=== PATIENT | male | born 1935 | race Caucasian/White ===

== ENCOUNTER 2017-06-15 14:01 | Inpatient (IN) | payer MEDICARE ==
--- NOTE | 2017-06-15 14:32 | ED Physician Chart ---
ED Chief Complaint/HPI - Patient Information Date Seen:: 06/15/17 Time Seen:: 14:20 Chief Complaint:: chest pain History of Present Illness:: Patient states he had a few seconds of anterior chest pain this morning which caused him to yell. The nurse administrator of the facility where he resides accompanied the patient and stated he sometimes has temper tantrums. Patient insists that his behavior this morning was secondary to his chest pain. Historian:: Patient, Other (nurse administrator of the facility at which he resides.) Review:: Nurse's Note Reviewed, Transfer documents Reviewed ED Review of Systems - Review of Systems General/Constitutional: No fever, No chills Skin: No skin lesions Head: No headache Eyes: No loss of vision ENT: No earache Neck: No neck pain, No swelling Cardio Vascular: Chest pain Pulmonary: No SOB GI: No nausea, No vomiting, No diarrhea G/U: No dysuria, No hematuria Musculoskeletal: No bone or joint pain Endocrine: No polyuria, No polydipsia Psychiatric: Prior psych history Hematopoietic: No bruising Allergic/Immuno: No urticaria Neurological: No syncope ED Past Medical History - Past Medical History Past Medical History: DM, CVA/TIA, Other (benign prostatic hypertrophy; neurogenic bladder; hydronephrosis; deep vein thrombosis left leg) Family History: None Social History: Non Smoker, No Alcohol, Care Facility Surgical History: Hernia Psychiatricy History: None Medication: Reviewed Family Medical History - Family Member Mother Ethnicity: Non- Living Status: ED Physical Exam - Physical Examination General/Constitutional: Well-developed, well-nourished, Alert, No distress Other Gen/Cons comments:: Alert and oriented to the exact date Head: Atraumatic Eyes: Lids, conjuctiva normal, PERRL Skin: Nl inspection, No rash ENMT: External ears, nose nl Other ENMT comments:: Complete dentures Neck: No nuchal rigidity Respiratory: Nl effort/Exclusion, Clear to Auscultation, No Wheeze/Rhonchi/Rales Cardio Vascular: RRR, No murmur, gallop, rubs, NL S1 S2 GI: No tenderness/rebounding/guarding, No organomegaly, No hernia, Normal BS's Extremities: Normal digits & nails Neuro/Psych: No focal deficits ED Labs/Radiology/EKG Results - Lab Results Results: Laboratory Results - last 24 hr 06/15/17 06/15/17 14:35 14:35 WBC 7.4 RBC 3.53 L Hgb 10.6 L Hct 31.4 L MCV 89.1 MCH 30.0 MCHC Differential 33.7 RDW 14.0 Plt Count 432 H MPV 6.7 Neutrophils % 40.5 Lymphocytes % 37.7 Monocytes % 13.9 H Eosinophils % 7.5 H Basophils % 0.4 Urine Source CLEAN C Urine Color YELLOW Urine Clarity CLOUDY Urine pH 6.5 Ur Specific [place] 1.020 Urine Protein 100 H Urine Glucose (UA) NEGATIVE Urine Ketones NEGATIVE Urine Blood LARGE H Urine Nitrate POSITIVE H Urine Bilirubin NEGATIVE Urine Urobilinogen 0.2 Ur Leukocyte Esterase LARGE H Urine RBC 25-50 H Urine WBC >100 H Ur Epithelial Cells NONE SEEN Urine Bacteria FEW Laboratory Results - last 24 hr 06/15/17 06/15/17 06/15/17 14:35 14:35 14:35 WBC 7.4 RBC 3.53 L Hgb 10.6 L Hct 31.4 L MCV 89.1 MCH 30.0 MCHC Differential 33.7 RDW 14.0 Plt Count 432 H MPV 6.7 Neutrophils % 40.5 Lymphocytes % 37.7 Monocytes % 13.9 H Eosinophils % 7.5 H Basophils % 0.4 Sodium 138 Potassium 3.8 Chloride 108 H Carbon Dioxide 21.1 Anion Gap 12.7 BUN 52 H Creatinine 3.2 H Est GFR ( Amer) TNP Est GFR (Non-Af Amer) TNP BUN/Creatinine Ratio 16.3 Glucose 96 Calcium 9.2 Total Bilirubin 0.2 L AST 10 L ALT 6 L Alkaline Phosphatase 64 Creatine Kinase Troponin I Total Protein 7.2 Albumin 3.6 L Globulin 3.6 Albumin/Globulin Ratio 1.0 Triglycerides 225 H Cholesterol 191 LDL Cholesterol Direct 117 HDL Cholesterol 44 TSH Urine Source CLEAN C Urine Color YELLOW Urine Clarity CLOUDY Urine pH 6.5 Ur Specific [place] 1.020 Urine Protein 100 H Urine Glucose (UA) NEGATIVE Urine Ketones NEGATIVE Urine Blood LARGE H Urine Nitrate POSITIVE H Urine Bilirubin NEGATIVE Urine Urobilinogen 0.2 Ur Leukocyte Esterase LARGE H Urine RBC 25-50 H Urine WBC >100 H Ur Epithelial Cells NONE SEEN Urine Bacteria FEW 06/15/17 06/15/17 06/15/17 14:35 14:35 14:35 WBC RBC Hgb Hct MCV MCH MCHC Differential RDW Plt Count MPV Neutrophils % Lymphocytes % Monocytes % Eosinophils % Basophils % Sodium Potassium Chloride Carbon Dioxide Anion Gap BUN Creatinine Est GFR ( Amer) Est GFR (Non-Af Amer) BUN/Creatinine Ratio Glucose Calcium Total Bilirubin AST ALT Alkaline Phosphatase Creatine Kinase 64 Troponin I 0.02 Total Protein Albumin Globulin Albumin/Globulin Ratio Triglycerides Cholesterol LDL Cholesterol Direct HDL Cholesterol TSH 1.50 Urine Source Urine Color Urine Clarity Urine pH Ur Specific [place] Urine Protein Urine Glucose (UA) Urine Ketones Urine Blood Urine Nitrate Urine Bilirubin Urine Urobilinogen Ur Leukocyte Esterase Urine RBC Urine WBC Ur Epithelial Cells Urine Bacteria - EKG Interpretations Rate & Rhythm: normal sinus rhythm with a rate of 76 [place]: normal Comments:: Unifocal PVCs ED Septic Shock - . Is Septic Shock (SBP<90, OR Lactate>4 mmol\L) present?: No ED Reassessment (Disposition) - Reassessment Reassessment Condition:: Unchanged - Diagnosis Diagnosis:: Combative behavior; typical chest pain renal insufficiency; data behavior; anemia - Patient Disposition Admitted to:: [facility] Admitting Medical Physician:: Leroy Paz Admitting Psych Physician:: Santiago Mota Condition at Disposition:: Stable, Unchanged
[2017-06-15 14:44] LABS: % BASOPHILS 0.4 % (0.0-2.0); % EOSINOPHILS 7.5 % (0.0-5.0); % LYMPHOCYTES 37.7 % (20.0-50.0); % MONOCYTES 13.9 % (2.0-10.0); % NEUTROPHILS 40.5 % (40.0-80.0); EOSINOPHILE ABSOLUTE 0.6 Th/cmm (0.1-0.4); HEMATOCRIT 31.4 % (41.0-60); HEMOGLOBIN 10.6 gm/dL (12-16); LYMPHOCYTE ABSOLUTE 2.8 Th/cmm (1.5-3.0); MEAN CELL VOLUME 89.1 fl (80-99); MEAN CORPUSCULAR HGB CONC 33.7 pg (28.0-36.0); MEAN PLATELET VOLUME 6.7 fl; PLATELET COUNT 432 Th/cmm (150-400); RED BLOOD COUNT 3.53 Mil/cmm (3.80-5.80); URINE MICROSCOPIC INDICATED? YES; URINE SOURCE CLEAN C; WHITE BLOOD COUNT 7.4 Th/cmm (4.8-10.8)
[2017-06-15 14:49] LABS: URINE BILIRUBIN NEGATIVE (NEGATIVE); URINE BLOOD LARGE (NEGATIVE); URINE GLUCOSE (UA) NEGATIVE (NEGATIVE); URINE KETONE NEGATIVE (NEGATIVE); URINE LEUKOCYTE ESTERASE LARGE (NEGATIVE); URINE NITRATE POSITIVE (NEGATIVE); URINE PH 6.5 (4.6 - 8.0); URINE PROTEIN 100 mg/dL (NEGATIVE); URINE UROBILINOGEN 0.2 E.U./dL (0.2 - 1.0)
[2017-06-15 14:51] LABS: URINE CLARITY CLOUDY (CLEAR); URINE COLOR YELLOW
[2017-06-15 14:59] LABS: URINE RBC 25-50 /hpf (0-5)
[2017-06-15 15:00] LABS: URINE WBC >100 /hpf (0-5)
[2017-06-15 15:01] LABS: URINE BACTERIA FEW /hpf (NONE SEEN); URINE EPITHELIAL CELLS NONE SEEN /lpf (FEW)
[2017-06-15 15:26] LABS: ALBUMIN 3.6 gm/dL (4.2-5.5); ALKALINE PHOSPHATASE 64 U/L (34-104); ANION GAP 12.7 (7.0-16.0); BILIRUBIN,TOTAL 0.2 mg/dL (0.3-1.0); BUN - UREA NITROGEN 52 mg/dL (7-25); CALCIUM SERUM 9.2 mg/dL (8.6-10.3); CARBON DIOXIDE 21.1 mEq/L (21.0-31.0); CHLORIDE 108 mEq/L (98-107); CHOLESTEROL 191 mg/dL (<200); CREATININE - SERUM 3.2 mg/dL (0.7-1.3); GLUCOSE 96 mg/dL (70-105); HDL -HIGH DENSITY LIPOPROTEIN 44 mg/dL (23-92); POTASSIUM SERUM 3.8 mEq/L (3.5-5.1); SGOT 10 U/L (13-39); SGPT/ALT 6 U/L (7-52); SODIUM SERUM 138 mEq/L (136-145); TOTAL PROTEIN,SERUM 7.2 gm/dL (6.0-8.3); TRIGLYCERIDES 225 mg/dL (<150)
[2017-06-15 17:58] VITALS: BP 134/76
[2017-06-15] MEDS ORDERED: Maalox 30 mL Cup PO PRN (17:59)
[2017-06-15] MEDS ORDERED: Magnesium Hydroxide (MOM) 30 mL UDC PO PRN (17:59)
[2017-06-16] MEDS ORDERED: Multivitamin Tab PO SCH (09:00)
[2017-06-16] MEDS ORDERED: Non-Formulary Item 1 EA (Apixaban [Eliquis] 2.5 MG) PO SCH (09:00)
[2017-06-16] MEDS ORDERED: Non-Formulary Item 1 EA (Omeprazole [Omeprazole] 20 MG) PO SCH (09:00)
[2017-06-16] MEDS ORDERED: Non-Formulary Item 1 EA (Cetirizine Hcl [Cetirizine Hcl] 10 MG) PO SCH (09:00)
[2017-06-16] MEDS: Multivitamin w/ Minerals Tab PO SCH (09:01)
[2017-06-16] MEDS: Pantoprazole 40 mg EC Tab PO SCH (09:12)
[2017-06-16] MEDS ORDERED: Triple Antibiotic 0.94 gm Pkt TP SCH (10:30)
--- NOTE | 2017-06-16 15:26 | Internal Medicine Prog Note ---
Internal Medicine Subjective - Subjective Service Date: 06/16/17 ([facility] [id number]) Internal Medicine Objective - Results Result Diagrams: 06/15/17 14:35 06/15/17 14:35 Recent Labs: Laboratory Last Values WBC 7.4 Th/cmm (4.8-10.8) 06/15/17 14:35 RBC 3.53 Mil/cmm (3.80-5.80) L 06/15/17 14:35 Hgb 10.6 gm/dL (12-16) L 06/15/17 14:35 Hct 31.4 % (41.0-60) L 06/15/17 14:35 MCV 89.1 fl (80-99) 06/15/17 14:35 MCH 30.0 pg (27.0-31.0) 06/15/17 14:35 MCHC Differential 33.7 pg (28.0-36.0) 06/15/17 14:35 RDW 14.0 % (11.5-20.0) 06/15/17 14:35 Plt Count 432 Th/cmm (150-400) H 06/15/17 14:35 MPV 6.7 fl 06/15/17 14:35 Neutrophils % 40.5 % (40.0-80.0) 06/15/17 14:35 Lymphocytes % 37.7 % (20.0-50.0) 06/15/17 14:35 Monocytes % 13.9 % (2.0-10.0) H 06/15/17 14:35 Eosinophils % 7.5 % (0.0-5.0) H 06/15/17 14:35 Basophils % 0.4 % (0.0-2.0) 06/15/17 14:35 Sodium 138 mEq/L (136-145) 06/15/17 14:35 Potassium 3.8 mEq/L (3.5-5.1) 06/15/17 14:35 Chloride 108 mEq/L (98-107) H 06/15/17 14:35 Carbon Dioxide 21.1 mEq/L (21.0-31.0) 06/15/17 14:35 Anion Gap 12.7 (7.0-16.0) 06/15/17 14:35 BUN 52 mg/dL (7-25) H 06/15/17 14:35 Creatinine 3.2 mg/dL (0.7-1.3) H 06/15/17 14:35 Est GFR ( Amer) TNP 06/15/17 14:35 Est GFR (Non-Af Amer) TNP 06/15/17 14:35 BUN/Creatinine Ratio 16.3 06/15/17 14:35 Glucose 96 mg/dL (70-105) 06/15/17 14:35 Calcium 9.2 mg/dL (8.6-10.3) 06/15/17 14:35 Total Bilirubin 0.2 mg/dL (0.3-1.0) L 06/15/17 14:35 AST 10 U/L (13-39) L 06/15/17 14:35 ALT 6 U/L (7-52) L 06/15/17 14:35 Alkaline Phosphatase 64 U/L (34-104) 06/15/17 14:35 Creatine Kinase 64 U/L (30-223) 06/15/17 14:35 Troponin I 0.02 ng/mL (0.01-0.05) 06/15/17 14:35 Total Protein 7.2 gm/dL (6.0-8.3) 06/15/17 14:35 Albumin 3.6 gm/dL (4.2-5.5) L 06/15/17 14:35 Globulin 3.6 gm/dL 06/15/17 14:35 Albumin/Globulin Ratio 1.0 (1.0-1.8) 06/15/17 14:35 Triglycerides 225 mg/dL (<150) H 06/15/17 14:35 Cholesterol 191 mg/dL (<200) 06/15/17 14:35 LDL Cholesterol Direct 117 mg/dL (75-193) 06/15/17 14:35 HDL Cholesterol 44 mg/dL (23-92) 06/15/17 14:35 TSH 1.50 uIU/ml (0.34-5.60) 06/15/17 14:35 Urine Source CLEAN C 06/15/17 14:35 Urine Color YELLOW 06/15/17 14:35 Urine Clarity CLOUDY (CLEAR) 06/15/17 14:35 Urine pH 6.5 (4.6 - 8.0) 06/15/17 14:35 Ur Specific [place] 1.020 (1.005-1.030) 06/15/17 14:35 Urine Protein 100 mg/dL (NEGATIVE) H 06/15/17 14:35 Urine Glucose (UA) NEGATIVE mg/dL (NEGATIVE) 06/15/17 14:35 Urine Ketones NEGATIVE mg/dL (NEGATIVE) 06/15/17 14:35 Urine Blood LARGE (NEGATIVE) H 06/15/17 14:35 Urine Nitrate POSITIVE (NEGATIVE) H 06/15/17 14:35 Urine Bilirubin NEGATIVE (NEGATIVE) 06/15/17 14:35 Urine Urobilinogen 0.2 E.U./dL (0.2 - 1.0) 06/15/17 14:35 Ur Leukocyte Esterase LARGE (NEGATIVE) H 06/15/17 14:35 Urine RBC 25-50 /hpf (0-5) H 06/15/17 14:35 Urine WBC >100 /hpf (0-5) H 06/15/17 14:35 Ur Epithelial Cells NONE SEEN /lpf (FEW) 06/15/17 14:35 Urine Bacteria FEW /hpf (NONE SEEN) 06/15/17 14:35 RPR NONREACTIVE (NONREACTIVE) 06/15/17 14:35 - Physical Exam Vitals and I&O: Vital Signs Temp 98 F 06/15/17 15:38 Pulse 65 06/16/17 15:21 Resp 18 06/15/17 18:05 BP 124/58 06/16/17 15:21 Pulse Ox 97 06/15/17 18:05 Active Medications: Current Medications Acetaminophen (Tylenol) 650 mg PO Q4HR PRN PRN Reason: Temp above 100 Stop: 08/14/17 17:58 Acetaminophen (Tylenol) 650 mg PO Q6HR PRN PRN Reason: Pain (Mild) Stop: 08/15/17 13:50 Al Hydrox/Mg Hydrox/Simethicone (Maalox) 30 ml PO Q4HR PRN PRN Reason: GI DISTRESS Stop: 08/14/17 17:58 Ascorbic Acid (Vitamin C) 500 mg PO DAILY [facility] Stop: 08/15/17 08:59 Last Admin: 06/16/17 09:02 Dose: 500 mg Escitalopram Oxalate (Lexapro) 10 mg PO DAILY [facility] PRN Reason: Protocol Stop: 08/15/17 08:59 Last Admin: 06/16/17 13:36 Dose: 10 mg Hydralazine HCl (Apresoline) 25 mg PO TID [facility] Stop: 08/14/17 20:59 Last Admin: 06/16/17 15:21 Dose: 25 mg Hydroxyzine HCl (Atarax) 25 mg PO Q6HR PRN; Protocol PRN Reason: PRURITUS Stop: 08/14/17 18:01 Hydroxyzine HCl (Atarax) 25 mg PO TID [facility] PRN Reason: Protocol Stop: 08/14/17 20:59 Last Admin: 06/16/17 13:37 Dose: 25 mg Loratadine (Claritin) 10 mg PO DAILY [facility] Stop: 08/15/17 08:59 Last Admin: 06/16/17 09:04 Dose: 10 mg Lorazepam (Ativan) 0.5 mg PO Q4HR PRN; Protocol PRN Reason: Anxiety Stop: 07/15/17 17:58 Lorazepam (Ativan) 0.5 mg PO Q12HR PRN; Protocol PRN Reason: Agitation Stop: 08/15/17 13:50 Magnesium Hydroxide (Milk Of Magnesia) 30 ml PO HS PRN PRN Reason: Constipation Metoprolol Tartrate (Lopressor) 12.5 mg PO DAILY [facility] Stop: 08/15/17 08:59 Last Admin: 06/16/17 09:03 Dose: 12.5 mg Miscellaneous (Apixaban [Eliquis]) 2.5 mg PO BID [facility] Stop: 08/15/17 08:59 Neomycin/Polymyxin/Bacitracin (Triple Antibiotic Pkt) 1 pkt TP QSHIFT [facility] Stop: 08/15/17 10:29 Pantoprazole Sodium (Protonix) 40 mg PO MWF [facility] Stop: 08/15/17 08:59 Last Admin: 06/16/17 09:12 Dose: 40 mg Quetiapine Fumarate (Seroquel) 25 mg PO BID [facility] PRN Reason: Protocol Stop: 08/15/17 08:59 Last Admin: 06/16/17 13:36 Dose: 25 mg Tamsulosin HCl (Flomax) 0.4 mg PO HS [facility] Stop: 08/14/17 20:59 Last Admin: 06/15/17 22:21 Dose: 0.4 mg Zolpidem Tartrate (Ambien) 5 mg PO HS PRN PRN Reason: Insomnia Stop: 08/14/17 17:58
[2017-06-16] MEDS: Sulfamethoxazole/TMP 800/160mg Tab PO SCH (17:36)
[2017-06-16] MEDS: Enoxaparin 80 mg/0.8 mL 0.8mL Syr SUBQ SCH (17:37)
--- NOTE | 2017-06-16 19:41 | History & Physical ---
ADMIT DATE: 06/16/2017 This is a History and Physical to covering for Dr. Leroy Paz. CHIEF COMPLAINT: Chest pain. HISTORY OF PRESENT ILLNESS: This is an 81-year-old male who was admitted to the Geropsych Unit. Apparently per ER records, the patient's administrator of home health at the retirement stated that the patient has been having temper tantrums and the patient's behavior was excessive due to patient's chest pain. In the ER, the patient had an EKG done and it was normal sinus rhythm. The patient denied any further chest pain. PAST MEDICAL HISTORY: Diabetes, CVA, TIA, BPH, neurogenic bladder, hydronephrosis, DVT, left leg. FAMILY HISTORY: Noncontributory. PAST SURGICAL HISTORY: Hernia. MEDICATIONS: Please see medication sheet. SOCIAL HISTORY: The patient is a retirement resident, requiring 24-hour nursing care. REVIEW OF SYSTEMS: GENERAL: Denies any fevers and chills. CARDIOVASCULAR: Denies chest pain. RESPIRATORY: Denies shortness of breath. GASTROINTESTINAL: Denies nausea, vomiting, abdominal pain. GENITOURINARY: Denies increased frequency or dysuria. NEUROLOGIC: No headaches, seizures, or syncope. All other systems are reviewed and are negative. PHYSICAL EXAMINATION: GENERAL: The patient is a well-developed, well-nourished, in no acute distress. VITAL SIGNS: Temperature 98, heart rate 66, blood pressure 124/63, respirations 16, O2 saturation 95%. HEENT: Head: Normocephalic, atraumatic. NECK: Supple. No mass. LUNGS: Clear bilaterally. HEART: Regular rate and rhythm. ABDOMEN: Soft and nontender. LABORATORY DATA: WBC 7.4, H and H 10.6 and 31.4, platelet of 432. Sodium 130, potassium 3.8, chloride 108, BUN 52, creatinine of 3.2. The patient had urinalysis done, positive for UTI. ASSESSMENT: 1. Acute renal insufficiency, acute urinary tract infection, anemia, benign prostatic hypertrophy. 2. Gastroesophageal reflux disease. PLAN: The patient to be admitted to the Geropsych Unit. We will monitor the patient for any further chest pain. We will keep the patient on Levaquin p.o. empiric for acute UTI. We will continue to monitor this patient. JOB# [id number]
[2017-06-16] MEDS: Triple Antibiotic 0.94 gm Pkt TP SCH (21:12)
[2017-06-17] MEDS: Multivitamin w/ Minerals Tab PO SCH (08:51)
[2017-06-17] MEDS: Sulfamethoxazole/TMP 800/160mg Tab PO SCH (08:53)
[2017-06-17] MEDS: Triple Antibiotic 0.94 gm Pkt TP SCH (09:38)
[2017-06-17] MEDS ORDERED: Haloperidol Lactate 5 mg/mL 1mL Vial ONE (13:45)
--- NOTE | 2017-06-17 17:12 | Internal Medicine Prog Note ---
Internal Medicine Subjective - Subjective Service Date: 06/17/17 Patient seen and examined:: with staff Patient is:: awake Per staff patient has:: tolerating meds Internal Medicine Objective - Results Result Diagrams: 06/15/17 14:35 06/15/17 14:35 Recent Labs: Laboratory Last Values WBC 7.4 Th/cmm (4.8-10.8) 06/15/17 14:35 RBC 3.53 Mil/cmm (3.80-5.80) L 06/15/17 14:35 Hgb 10.6 gm/dL (12-16) L 06/15/17 14:35 Hct 31.4 % (41.0-60) L 06/15/17 14:35 MCV 89.1 fl (80-99) 06/15/17 14:35 MCH 30.0 pg (27.0-31.0) 06/15/17 14:35 MCHC Differential 33.7 pg (28.0-36.0) 06/15/17 14:35 RDW 14.0 % (11.5-20.0) 06/15/17 14:35 Plt Count 432 Th/cmm (150-400) H 06/15/17 14:35 MPV 6.7 fl 06/15/17 14:35 Neutrophils % 40.5 % (40.0-80.0) 06/15/17 14:35 Lymphocytes % 37.7 % (20.0-50.0) 06/15/17 14:35 Monocytes % 13.9 % (2.0-10.0) H 06/15/17 14:35 Eosinophils % 7.5 % (0.0-5.0) H 06/15/17 14:35 Basophils % 0.4 % (0.0-2.0) 06/15/17 14:35 Sodium 138 mEq/L (136-145) 06/15/17 14:35 Potassium 3.8 mEq/L (3.5-5.1) 06/15/17 14:35 Chloride 108 mEq/L (98-107) H 06/15/17 14:35 Carbon Dioxide 21.1 mEq/L (21.0-31.0) 06/15/17 14:35 Anion Gap 12.7 (7.0-16.0) 06/15/17 14:35 BUN 52 mg/dL (7-25) H 06/15/17 14:35 Creatinine 3.2 mg/dL (0.7-1.3) H 06/15/17 14:35 Est GFR ( Amer) TNP 06/15/17 14:35 Est GFR (Non-Af Amer) TNP 06/15/17 14:35 BUN/Creatinine Ratio 16.3 06/15/17 14:35 Glucose 96 mg/dL (70-105) 06/15/17 14:35 Calcium 9.2 mg/dL (8.6-10.3) 06/15/17 14:35 Total Bilirubin 0.2 mg/dL (0.3-1.0) L 06/15/17 14:35 AST 10 U/L (13-39) L 06/15/17 14:35 ALT 6 U/L (7-52) L 06/15/17 14:35 Alkaline Phosphatase 64 U/L (34-104) 06/15/17 14:35 Creatine Kinase 64 U/L (30-223) 06/15/17 14:35 Troponin I 0.02 ng/mL (0.01-0.05) 06/15/17 14:35 Total Protein 7.2 gm/dL (6.0-8.3) 06/15/17 14:35 Albumin 3.6 gm/dL (4.2-5.5) L 06/15/17 14:35 Globulin 3.6 gm/dL 06/15/17 14:35 Albumin/Globulin Ratio 1.0 (1.0-1.8) 06/15/17 14:35 Triglycerides 225 mg/dL (<150) H 06/15/17 14:35 Cholesterol 191 mg/dL (<200) 06/15/17 14:35 LDL Cholesterol Direct 117 mg/dL (75-193) 06/15/17 14:35 HDL Cholesterol 44 mg/dL (23-92) 06/15/17 14:35 TSH 1.50 uIU/ml (0.34-5.60) 06/15/17 14:35 Urine Source CLEAN C 06/15/17 14:35 Urine Color YELLOW 06/15/17 14:35 Urine Clarity CLOUDY (CLEAR) 06/15/17 14:35 Urine pH 6.5 (4.6 - 8.0) 06/15/17 14:35 Ur Specific [place] 1.020 (1.005-1.030) 06/15/17 14:35 Urine Protein 100 mg/dL (NEGATIVE) H 06/15/17 14:35 Urine Glucose (UA) NEGATIVE mg/dL (NEGATIVE) 06/15/17 14:35 Urine Ketones NEGATIVE mg/dL (NEGATIVE) 06/15/17 14:35 Urine Blood LARGE (NEGATIVE) H 06/15/17 14:35 Urine Nitrate POSITIVE (NEGATIVE) H 06/15/17 14:35 Urine Bilirubin NEGATIVE (NEGATIVE) 06/15/17 14:35 Urine Urobilinogen 0.2 E.U./dL (0.2 - 1.0) 06/15/17 14:35 Ur Leukocyte Esterase LARGE (NEGATIVE) H 06/15/17 14:35 Urine RBC 25-50 /hpf (0-5) H 06/15/17 14:35 Urine WBC >100 /hpf (0-5) H 06/15/17 14:35 Ur Epithelial Cells NONE SEEN /lpf (FEW) 06/15/17 14:35 Urine Bacteria FEW /hpf (NONE SEEN) 06/15/17 14:35 RPR NONREACTIVE (NONREACTIVE) 06/15/17 14:35 - Physical Exam Vitals and I&O: Vital Signs Temp 97.9 F 06/17/17 16:15 Pulse 70 06/17/17 16:15 Resp 19 06/17/17 16:15 BP 126/93 06/17/17 16:15 Pulse Ox 97 06/17/17 16:15 Intake & Output 06/16/17 06/17/17 06/17/17 18:59 06:59 18:59 Other: Stool Characteristics Soft Soft Liquid Brown Brown Active Medications: Current Medications Acetaminophen (Tylenol) 650 mg PO Q4HR PRN PRN Reason: Temp above 100 Stop: 08/14/17 17:58 Acetaminophen (Tylenol) 650 mg PO Q6HR PRN PRN Reason: Pain (Mild) Stop: 08/15/17 13:50 Al Hydrox/Mg Hydrox/Simethicone (Maalox) 30 ml PO Q4HR PRN PRN Reason: GI DISTRESS Stop: 08/14/17 17:58 Ascorbic Acid (Vitamin C) 500 mg PO DAILY [facility] Stop: 08/15/17 08:59 Last Admin: 06/17/17 08:51 Dose: 500 mg Enoxaparin Sodium (Lovenox) 70 mg SUBQ Q24H [facility] Stop: 08/15/17 17:59 Last Admin: 06/16/17 17:37 Dose: 70 mg Escitalopram Oxalate (Lexapro) 10 mg PO DAILY [facility] PRN Reason: Protocol Stop: 08/15/17 08:59 Last Admin: 06/17/17 08:52 Dose: 10 mg Hydralazine HCl (Apresoline) 25 mg PO TID [facility] Stop: 08/14/17 20:59 Last Admin: 06/17/17 15:07 Dose: Not Given Hydroxyzine HCl (Atarax) 25 mg PO Q6HR PRN; Protocol PRN Reason: PRURITUS Stop: 08/14/17 18:01 Hydroxyzine HCl (Atarax) 25 mg PO TID [facility] PRN Reason: Protocol Stop: 08/14/17 20:59 Last Admin: 06/17/17 15:07 Dose: Not Given Loratadine (Claritin) 10 mg PO DAILY [facility] Stop: 08/15/17 08:59 Last Admin: 06/17/17 08:52 Dose: 10 mg Lorazepam (Ativan) 0.5 mg PO Q4HR PRN; Protocol PRN Reason: Anxiety Stop: 07/15/17 17:58 Lorazepam (Ativan) 0.5 mg PO Q12HR PRN; Protocol PRN Reason: Agitation Stop: 08/15/17 13:50 Magnesium Hydroxide (Milk Of Magnesia) 30 ml PO HS PRN PRN Reason: Constipation Metoprolol Tartrate (Lopressor) 12.5 mg PO DAILY [facility] Stop: 08/15/17 08:59 Last Admin: 06/17/17 08:49 Dose: 12.5 mg Neomycin/Polymyxin/Bacitracin (Triple Antibiotic Pkt) 1 pkt TP DAILY [facility] Stop: 08/17/17 08:59 Pantoprazole Sodium (Protonix) 40 mg PO MWF [facility] Stop: 08/15/17 08:59 Last Admin: 06/16/17 09:12 Dose: 40 mg Quetiapine Fumarate (Seroquel) 25 mg PO BID [facility] PRN Reason: Protocol Stop: 08/15/17 08:59 Last Admin: 06/17/17 08:50 Dose: 25 mg Tamsulosin HCl (Flomax) 0.4 mg PO HS [facility] Stop: 08/14/17 20:59 Last Admin: 06/16/17 21:10 Dose: 0.4 mg Trimethoprim/Sulfamethoxazole (Bactrim Ds) 1 tab PO DAILY [facility] Stop: 08/15/17 16:59 Last Admin: 06/17/17 08:53 Dose: 1 tab Zolpidem Tartrate (Ambien) 5 mg PO HS PRN PRN Reason: Insomnia Stop: 08/14/17 17:58 General: alert HEENT: NC/AT, PERRLA Neck: Supple Lungs: CTAB Cardiovascular: RRR, Normal S1, Normal S2, without murmur Abdomen: soft, non-tender, non-distended, positive bowel sound Neurological: alert Internal Medicine Assmt/Plan - Assessment Assessment: acute uti mrsa urine acute renal insufficiency anemia bph gerd - Plan Plan: continue po abx encourage fluids continue current plan of care
[2017-06-17] MEDS: Enoxaparin 80 mg/0.8 mL 0.8mL Syr SUBQ SCH (17:43)
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
[2017-06-18] MEDS ORDERED: Triple Antibiotic 0.94 gm Pkt TP SCH (09:00)
[2017-06-18] MEDS: Triple Antibiotic 0.94 gm Pkt TP SCH (09:07)
[2017-06-18] MEDS: Sulfamethoxazole/TMP 800/160mg Tab PO SCH (09:09)
[2017-06-18] MEDS: Multivitamin w/ Minerals Tab PO SCH (09:11)
--- NOTE | 2017-06-18 15:48 | Internal Medicine Prog Note ---
Internal Medicine Subjective - Subjective Service Date: 06/18/17 Patient is:: awake Per staff patient has:: tolerating meds Internal Medicine Objective - Results Result Diagrams: 06/15/17 14:35 06/15/17 14:35 Recent Labs: Laboratory Last Values WBC 7.4 Th/cmm (4.8-10.8) 06/15/17 14:35 RBC 3.53 Mil/cmm (3.80-5.80) L 06/15/17 14:35 Hgb 10.6 gm/dL (12-16) L 06/15/17 14:35 Hct 31.4 % (41.0-60) L 06/15/17 14:35 MCV 89.1 fl (80-99) 06/15/17 14:35 MCH 30.0 pg (27.0-31.0) 06/15/17 14:35 MCHC Differential 33.7 pg (28.0-36.0) 06/15/17 14:35 RDW 14.0 % (11.5-20.0) 06/15/17 14:35 Plt Count 432 Th/cmm (150-400) H 06/15/17 14:35 MPV 6.7 fl 06/15/17 14:35 Neutrophils % 40.5 % (40.0-80.0) 06/15/17 14:35 Lymphocytes % 37.7 % (20.0-50.0) 06/15/17 14:35 Monocytes % 13.9 % (2.0-10.0) H 06/15/17 14:35 Eosinophils % 7.5 % (0.0-5.0) H 06/15/17 14:35 Basophils % 0.4 % (0.0-2.0) 06/15/17 14:35 Sodium 138 mEq/L (136-145) 06/15/17 14:35 Potassium 3.8 mEq/L (3.5-5.1) 06/15/17 14:35 Chloride 108 mEq/L (98-107) H 06/15/17 14:35 Carbon Dioxide 21.1 mEq/L (21.0-31.0) 06/15/17 14:35 Anion Gap 12.7 (7.0-16.0) 06/15/17 14:35 BUN 52 mg/dL (7-25) H 06/15/17 14:35 Creatinine 3.2 mg/dL (0.7-1.3) H 06/15/17 14:35 Est GFR ( Amer) TNP 06/15/17 14:35 Est GFR (Non-Af Amer) TNP 06/15/17 14:35 BUN/Creatinine Ratio 16.3 06/15/17 14:35 Glucose 96 mg/dL (70-105) 06/15/17 14:35 POC Glucose 118 MG/DL (70 - 105) H 06/18/17 11:41 Calcium 9.2 mg/dL (8.6-10.3) 06/15/17 14:35 Total Bilirubin 0.2 mg/dL (0.3-1.0) L 06/15/17 14:35 AST 10 U/L (13-39) L 06/15/17 14:35 ALT 6 U/L (7-52) L 06/15/17 14:35 Alkaline Phosphatase 64 U/L (34-104) 06/15/17 14:35 Creatine Kinase 64 U/L (30-223) 06/15/17 14:35 Troponin I 0.02 ng/mL (0.01-0.05) 06/15/17 14:35 Total Protein 7.2 gm/dL (6.0-8.3) 06/15/17 14:35 Albumin 3.6 gm/dL (4.2-5.5) L 06/15/17 14:35 Globulin 3.6 gm/dL 06/15/17 14:35 Albumin/Globulin Ratio 1.0 (1.0-1.8) 06/15/17 14:35 Triglycerides 225 mg/dL (<150) H 06/15/17 14:35 Cholesterol 191 mg/dL (<200) 06/15/17 14:35 LDL Cholesterol Direct 117 mg/dL (75-193) 06/15/17 14:35 HDL Cholesterol 44 mg/dL (23-92) 06/15/17 14:35 TSH 1.50 uIU/ml (0.34-5.60) 06/15/17 14:35 Urine Source CLEAN C 06/15/17 14:35 Urine Color YELLOW 06/15/17 14:35 Urine Clarity CLOUDY (CLEAR) 06/15/17 14:35 Urine pH 6.5 (4.6 - 8.0) 06/15/17 14:35 Ur Specific [place] 1.020 (1.005-1.030) 06/15/17 14:35 Urine Protein 100 mg/dL (NEGATIVE) H 06/15/17 14:35 Urine Glucose (UA) NEGATIVE mg/dL (NEGATIVE) 06/15/17 14:35 Urine Ketones NEGATIVE mg/dL (NEGATIVE) 06/15/17 14:35 Urine Blood LARGE (NEGATIVE) H 06/15/17 14:35 Urine Nitrate POSITIVE (NEGATIVE) H 06/15/17 14:35 Urine Bilirubin NEGATIVE (NEGATIVE) 06/15/17 14:35 Urine Urobilinogen 0.2 E.U./dL (0.2 - 1.0) 06/15/17 14:35 Ur Leukocyte Esterase LARGE (NEGATIVE) H 06/15/17 14:35 Urine RBC 25-50 /hpf (0-5) H 06/15/17 14:35 Urine WBC >100 /hpf (0-5) H 06/15/17 14:35 Ur Epithelial Cells NONE SEEN /lpf (FEW) 06/15/17 14:35 Urine Bacteria FEW /hpf (NONE SEEN) 06/15/17 14:35 RPR NONREACTIVE (NONREACTIVE) 06/15/17 14:35 - Physical Exam Vitals and I&O: Vital Signs Temp 98.5 F 06/18/17 15:10 Pulse 103 06/18/17 15:17 Resp 20 06/18/17 15:10 BP 141/72 06/18/17 15:17 Pulse Ox 96 06/18/17 15:10 Intake & Output 06/17/17 06/18/17 06/18/17 18:59 06:59 18:59 Intake Total 850 120 Output Total 800 Balance 50 120 Intake: Oral 850 120 Output: Urine 800 Other: # Voids 1 # Bowel Movements 1 Stool Characteristics Soft Brown Active Medications: Current Medications Acetaminophen (Tylenol) 650 mg PO Q4HR PRN PRN Reason: Temp above 100 Stop: 08/14/17 17:58 Acetaminophen (Tylenol) 650 mg PO Q6HR PRN PRN Reason: Pain (Mild) Stop: 08/15/17 13:50 Al Hydrox/Mg Hydrox/Simethicone (Maalox) 30 ml PO Q4HR PRN PRN Reason: GI DISTRESS Stop: 08/14/17 17:58 Ascorbic Acid (Vitamin C) 500 mg PO DAILY [facility] Stop: 08/15/17 08:59 Last Admin: 06/18/17 09:10 Dose: 500 mg Enoxaparin Sodium (Lovenox) 70 mg SUBQ Q24H [facility] Stop: 08/15/17 17:59 Last Admin: 06/17/17 17:43 Dose: Not Given Escitalopram Oxalate (Lexapro) 10 mg PO DAILY [facility] PRN Reason: Protocol Stop: 08/15/17 08:59 Last Admin: 06/18/17 09:08 Dose: 10 mg Hydralazine HCl (Apresoline) 25 mg PO TID [facility] Stop: 08/14/17 20:59 Last Admin: 06/18/17 15:17 Dose: 25 mg Hydroxyzine HCl (Atarax) 25 mg PO Q6HR PRN; Protocol PRN Reason: PRURITUS Stop: 08/14/17 18:01 Last Admin: 06/17/17 21:45 Dose: 25 mg Hydroxyzine HCl (Atarax) 25 mg PO TID [facility] PRN Reason: Protocol Stop: 08/14/17 20:59 Last Admin: 06/18/17 15:17 Dose: 25 mg Loratadine (Claritin) 10 mg PO DAILY [facility] Stop: 08/15/17 08:59 Last Admin: 06/18/17 09:11 Dose: 10 mg Lorazepam (Ativan) 0.5 mg PO Q4HR PRN; Protocol PRN Reason: Anxiety Stop: 07/15/17 17:58 Lorazepam (Ativan) 0.5 mg PO Q12HR PRN; Protocol PRN Reason: Agitation Stop: 08/15/17 13:50 Magnesium Hydroxide (Milk Of Magnesia) 30 ml PO HS PRN PRN Reason: Constipation Metoprolol Tartrate (Lopressor) 12.5 mg PO DAILY [facility] Stop: 08/15/17 08:59 Last Admin: 06/18/17 09:08 Dose: 12.5 mg Neomycin/Polymyxin/Bacitracin (Triple Antibiotic Pkt) 1 pkt TP DAILY [facility] Stop: 08/17/17 08:59 Last Admin: 06/18/17 09:07 Dose: 1 pkt Pantoprazole Sodium (Protonix) 40 mg PO MWF [facility] Stop: 08/15/17 08:59 Last Admin: 06/16/17 09:12 Dose: 40 mg Quetiapine Fumarate (Seroquel) 25 mg PO BID [facility] PRN Reason: Protocol Stop: 08/15/17 08:59 Last Admin: 06/18/17 09:10 Dose: 25 mg Tamsulosin HCl (Flomax) 0.4 mg PO HS [facility] Stop: 08/14/17 20:59 Last Admin: 06/17/17 21:44 Dose: 0.4 mg Trimethoprim/Sulfamethoxazole (Bactrim Ds) 1 tab PO DAILY [facility] Stop: 08/15/17 16:59 Last Admin: 06/18/17 09:09 Dose: 1 tab Zolpidem Tartrate (Ambien) 5 mg PO HS PRN PRN Reason: Insomnia Stop: 08/14/17 17:58 General: alert HEENT: NC/AT, PERRLA Neck: Supple Lungs: CTAB Cardiovascular: RRR, Normal S1, Normal S2, without murmur Abdomen: soft, non-tender, non-distended, positive bowel sound Neurological: alert Internal Medicine Assmt/Plan - Assessment Assessment: acute uti mrsa urine acute renal insufficiency anemia bph gerd - Plan Plan: continue po abx encourage fluids continue current plan of care
[2017-06-18] MEDS: Enoxaparin 80 mg/0.8 mL 0.8mL Syr SUBQ SCH (18:25)
[2017-06-19] MEDS: Triple Antibiotic 0.94 gm Pkt TP SCH (08:41)
[2017-06-19] MEDS: Multivitamin w/ Minerals Tab PO SCH (08:45)
[2017-06-19] MEDS: Pantoprazole 40 mg EC Tab PO SCH (08:45)
[2017-06-19] MEDS ORDERED: Probiotic Screen MC PRN (09:30)
--- NOTE | 2017-06-19 12:23 | Progress Notes ---
DATE: 06/17/2017 SUBJECTIVE: Chart reviewed and the patient interviewed. Also discussed the patient's condition with the staff and reviewed records and labs. The patient is still in irritable and angry mood. The patient also is still demanding and he still wants his needs to be met immediately. Also, he still has episodes of yelling. On the other hand, the patient is slightly easier to follow directions since was started on Seroquel. ASSESSMENT: The patient is still psychotic. TREATMENT PLAN: We will continue to monitor his behavior and his condition closely. Also, continue to work on his irritability and anger and we will continue to follow up. JOB# [id number]
--- NOTE | 2017-06-19 13:16 | Internal Medicine Prog Note ---
Internal Medicine Subjective - Subjective Service Date: 06/19/17 Patient is:: awake Per staff patient has:: tolerating meds Internal Medicine Objective - Results Result Diagrams: 06/15/17 14:35 06/15/17 14:35 Recent Labs: Laboratory Last Values WBC 7.4 Th/cmm (4.8-10.8) 06/15/17 14:35 RBC 3.53 Mil/cmm (3.80-5.80) L 06/15/17 14:35 Hgb 10.6 gm/dL (12-16) L 06/15/17 14:35 Hct 31.4 % (41.0-60) L 06/15/17 14:35 MCV 89.1 fl (80-99) 06/15/17 14:35 MCH 30.0 pg (27.0-31.0) 06/15/17 14:35 MCHC Differential 33.7 pg (28.0-36.0) 06/15/17 14:35 RDW 14.0 % (11.5-20.0) 06/15/17 14:35 Plt Count 432 Th/cmm (150-400) H 06/15/17 14:35 MPV 6.7 fl 06/15/17 14:35 Neutrophils % 40.5 % (40.0-80.0) 06/15/17 14:35 Lymphocytes % 37.7 % (20.0-50.0) 06/15/17 14:35 Monocytes % 13.9 % (2.0-10.0) H 06/15/17 14:35 Eosinophils % 7.5 % (0.0-5.0) H 06/15/17 14:35 Basophils % 0.4 % (0.0-2.0) 06/15/17 14:35 Sodium 138 mEq/L (136-145) 06/15/17 14:35 Potassium 3.8 mEq/L (3.5-5.1) 06/15/17 14:35 Chloride 108 mEq/L (98-107) H 06/15/17 14:35 Carbon Dioxide 21.1 mEq/L (21.0-31.0) 06/15/17 14:35 Anion Gap 12.7 (7.0-16.0) 06/15/17 14:35 BUN 52 mg/dL (7-25) H 06/15/17 14:35 Creatinine 3.2 mg/dL (0.7-1.3) H 06/15/17 14:35 Est GFR ( Amer) TNP 06/15/17 14:35 Est GFR (Non-Af Amer) TNP 06/15/17 14:35 BUN/Creatinine Ratio 16.3 06/15/17 14:35 Glucose 96 mg/dL (70-105) 06/15/17 14:35 POC Glucose 120 MG/DL (70 - 105) H 06/18/17 20:02 Calcium 9.2 mg/dL (8.6-10.3) 06/15/17 14:35 Total Bilirubin 0.2 mg/dL (0.3-1.0) L 06/15/17 14:35 AST 10 U/L (13-39) L 06/15/17 14:35 ALT 6 U/L (7-52) L 06/15/17 14:35 Alkaline Phosphatase 64 U/L (34-104) 06/15/17 14:35 Creatine Kinase 64 U/L (30-223) 06/15/17 14:35 Troponin I 0.02 ng/mL (0.01-0.05) 06/15/17 14:35 Total Protein 7.2 gm/dL (6.0-8.3) 06/15/17 14:35 Albumin 3.6 gm/dL (4.2-5.5) L 06/15/17 14:35 Globulin 3.6 gm/dL 06/15/17 14:35 Albumin/Globulin Ratio 1.0 (1.0-1.8) 06/15/17 14:35 Triglycerides 225 mg/dL (<150) H 06/15/17 14:35 Cholesterol 191 mg/dL (<200) 06/15/17 14:35 LDL Cholesterol Direct 117 mg/dL (75-193) 06/15/17 14:35 HDL Cholesterol 44 mg/dL (23-92) 06/15/17 14:35 TSH 1.50 uIU/ml (0.34-5.60) 06/15/17 14:35 Urine Source CLEAN C 06/15/17 14:35 Urine Color YELLOW 06/15/17 14:35 Urine Clarity CLOUDY (CLEAR) 06/15/17 14:35 Urine pH 6.5 (4.6 - 8.0) 06/15/17 14:35 Ur Specific [place] 1.020 (1.005-1.030) 06/15/17 14:35 Urine Protein 100 mg/dL (NEGATIVE) H 06/15/17 14:35 Urine Glucose (UA) NEGATIVE mg/dL (NEGATIVE) 06/15/17 14:35 Urine Ketones NEGATIVE mg/dL (NEGATIVE) 06/15/17 14:35 Urine Blood LARGE (NEGATIVE) H 06/15/17 14:35 Urine Nitrate POSITIVE (NEGATIVE) H 06/15/17 14:35 Urine Bilirubin NEGATIVE (NEGATIVE) 06/15/17 14:35 Urine Urobilinogen 0.2 E.U./dL (0.2 - 1.0) 06/15/17 14:35 Ur Leukocyte Esterase LARGE (NEGATIVE) H 06/15/17 14:35 Urine RBC 25-50 /hpf (0-5) H 06/15/17 14:35 Urine WBC >100 /hpf (0-5) H 06/15/17 14:35 Ur Epithelial Cells NONE SEEN /lpf (FEW) 06/15/17 14:35 Urine Bacteria FEW /hpf (NONE SEEN) 06/15/17 14:35 RPR NONREACTIVE (NONREACTIVE) 06/15/17 14:35 - Physical Exam Vitals and I&O: Vital Signs Temp 98 F 06/18/17 20:13 Pulse 78 06/19/17 08:42 Resp 20 06/19/17 08:00 BP 127/57 06/19/17 08:42 Pulse Ox 97 06/18/17 20:13 Intake & Output 06/18/17 06/19/17 06/19/17 18:59 06:59 18:59 Intake Total 900 240 Output Total 650 Balance 250 240 Weight (lbs) 163 lb Intake: Oral 900 240 Output: Urine 650 Other: # Voids 3 # Bowel Movements 1 0 Active Medications: Current Medications Acetaminophen (Tylenol) 650 mg PO Q4HR PRN PRN Reason: Temp above 100 Stop: 08/14/17 17:58 Acetaminophen (Tylenol) 650 mg PO Q6HR PRN PRN Reason: Pain (Mild) Stop: 08/15/17 13:50 Al Hydrox/Mg Hydrox/Simethicone (Maalox) 30 ml PO Q4HR PRN PRN Reason: GI DISTRESS Stop: 08/14/17 17:58 Ascorbic Acid (Vitamin C) 500 mg PO DAILY [facility] Stop: 08/15/17 08:59 Last Admin: 06/19/17 08:41 Dose: 500 mg Enoxaparin Sodium (Lovenox) 70 mg SUBQ Q24H [facility] Stop: 08/15/17 17:59 Last Admin: 06/18/17 18:25 Dose: Not Given Escitalopram Oxalate (Lexapro) 10 mg PO DAILY [facility] PRN Reason: Protocol Stop: 08/15/17 08:59 Last Admin: 06/19/17 08:41 Dose: 10 mg Hydralazine HCl (Apresoline) 25 mg PO TID [facility] Stop: 08/14/17 20:59 Last Admin: 06/19/17 08:42 Dose: Not Given Hydroxyzine HCl (Atarax) 25 mg PO Q6HR PRN; Protocol PRN Reason: PRURITUS Stop: 08/14/17 18:01 Last Admin: 06/17/17 21:45 Dose: 25 mg Hydroxyzine HCl (Atarax) 25 mg PO TID [facility] PRN Reason: Protocol Stop: 08/14/17 20:59 Last Admin: 06/19/17 08:44 Dose: 25 mg Lactobacillus Rhamnosus (Culturelle 15b) 1 each PO DAILY [facility] Stop: 08/19/17 08:59 Levofloxacin (Levaquin) 250 mg PO Q2D@0900 [facility] Stop: 08/19/17 08:59 Loratadine (Claritin) 10 mg PO DAILY [facility] Stop: 08/15/17 08:59 Last Admin: 06/19/17 08:45 Dose: 10 mg Lorazepam (Ativan) 0.5 mg PO Q4HR PRN; Protocol PRN Reason: Anxiety Stop: 07/15/17 17:58 Lorazepam (Ativan) 0.5 mg PO Q12HR PRN; Protocol PRN Reason: Agitation Stop: 08/15/17 13:50 Magnesium Hydroxide (Milk Of Magnesia) 30 ml PO HS PRN PRN Reason: Constipation Metoprolol Tartrate (Lopressor) 12.5 mg PO DAILY [facility] Stop: 08/15/17 08:59 Last Admin: 06/19/17 08:19 Dose: Not Given Miscellaneous (Probiotic Screen) 1 ea [facility] PRN PRN PRN Reason: PROTOCOL Stop: 08/18/17 09:29 Neomycin/Polymyxin/Bacitracin (Triple Antibiotic Pkt) 1 pkt TP DAILY [facility] Stop: 08/17/17 08:59 Last Admin: 06/19/17 08:41 Dose: 1 pkt Nitrofurantoin Macrocrystals (Macrobid) 100 mg PO BID [facility] PRN Reason: Protocol Stop: 06/26/17 08:59 Last Admin: 06/19/17 08:45 Dose: 100 mg Pantoprazole Sodium (Protonix) 40 mg PO MWF [facility] Stop: 08/15/17 08:59 Last Admin: 06/19/17 08:45 Dose: 40 mg Quetiapine Fumarate (Seroquel) 25 mg PO BID [facility] PRN Reason: Protocol Stop: 08/15/17 08:59 Last Admin: 06/19/17 08:46 Dose: 25 mg Tamsulosin HCl (Flomax) 0.4 mg PO HS [facility] Stop: 08/14/17 20:59 Last Admin: 06/18/17 21:36 Dose: 0.4 mg Zolpidem Tartrate (Ambien) 5 mg PO HS PRN PRN Reason: Insomnia Stop: 08/14/17 17:58 General: alert HEENT: NC/AT, PERRLA Neck: Supple Lungs: CTAB Cardiovascular: RRR, Normal S1, Normal S2, without murmur Abdomen: soft, non-tender, non-distended, positive bowel sound Neurological: alert Internal Medicine Assmt/Plan - Assessment Assessment: acute uti mrsa urine acute renal insufficiency anemia bph gerd - Plan Plan: continue po abx augmentin encourage fluids continue current plan of care
[2017-06-19] MEDS: Enoxaparin 80 mg/0.8 mL 0.8mL Syr SUBQ SCH (17:06)
--- NOTE | 2017-06-20 07:05 | Progress Notes ---
DATE: 06/19/2017 SUBJECTIVE: The patient is transferred to the hospital from [place], increased agitation, psychosis, talking to himself, apparently striking and hitting others, out of control, unruly. The patient is minimizing, does not know why he is here. He does not know that he is in a psych unit. He knows he is in the hospital. He is demanding to leave, he wants to go. He states his is with dementia and he needs to take care of her. The patient with history of depression, Lexapro had been initiated in the past. Dr. Eng saw the patient in my absence over the weekend, noted irritability, angry mood, episodes of yelling. ASSESSMENT: The patient remains symptomatic, highly impulsive, unpredictable, still with ongoing mood symptoms, no overt psychosis. At this time, he is not hallucinating, he is not paranoid, but seems confused, minimizing and guarded. PLAN: We will continue to monitor. Given his ongoing symptoms, there are continued safety concerns. JOB# [id number]
[2017-06-20] MEDS: Lactobacillus Rhamnosus GG 15 Billion CFU CAP.SPRINK PO SCH (08:25)
[2017-06-20] MEDS: Triple Antibiotic 0.94 gm Pkt TP SCH (08:25)
[2017-06-20] MEDS: Multivitamin w/ Minerals Tab PO SCH (08:26)
--- NOTE | 2017-06-20 13:03 | Internal Medicine Prog Note ---
Internal Medicine Subjective - Subjective Service Date: 06/20/17 Patient is:: awake Per staff patient has:: tolerating meds Internal Medicine Objective - Results Result Diagrams: 06/15/17 14:35 06/15/17 14:35 Recent Labs: Laboratory Last Values WBC 7.4 Th/cmm (4.8-10.8) 06/15/17 14:35 RBC 3.53 Mil/cmm (3.80-5.80) L 06/15/17 14:35 Hgb 10.6 gm/dL (12-16) L 06/15/17 14:35 Hct 31.4 % (41.0-60) L 06/15/17 14:35 MCV 89.1 fl (80-99) 06/15/17 14:35 MCH 30.0 pg (27.0-31.0) 06/15/17 14:35 MCHC Differential 33.7 pg (28.0-36.0) 06/15/17 14:35 RDW 14.0 % (11.5-20.0) 06/15/17 14:35 Plt Count 432 Th/cmm (150-400) H 06/15/17 14:35 MPV 6.7 fl 06/15/17 14:35 Neutrophils % 40.5 % (40.0-80.0) 06/15/17 14:35 Lymphocytes % 37.7 % (20.0-50.0) 06/15/17 14:35 Monocytes % 13.9 % (2.0-10.0) H 06/15/17 14:35 Eosinophils % 7.5 % (0.0-5.0) H 06/15/17 14:35 Basophils % 0.4 % (0.0-2.0) 06/15/17 14:35 Sodium 138 mEq/L (136-145) 06/15/17 14:35 Potassium 3.8 mEq/L (3.5-5.1) 06/15/17 14:35 Chloride 108 mEq/L (98-107) H 06/15/17 14:35 Carbon Dioxide 21.1 mEq/L (21.0-31.0) 06/15/17 14:35 Anion Gap 12.7 (7.0-16.0) 06/15/17 14:35 BUN 52 mg/dL (7-25) H 06/15/17 14:35 Creatinine 3.2 mg/dL (0.7-1.3) H 06/15/17 14:35 Est GFR ( Amer) TNP 06/15/17 14:35 Est GFR (Non-Af Amer) TNP 06/15/17 14:35 BUN/Creatinine Ratio 16.3 06/15/17 14:35 Glucose 96 mg/dL (70-105) 06/15/17 14:35 POC Glucose 134 MG/DL (70 - 105) H 06/19/17 20:23 Calcium 9.2 mg/dL (8.6-10.3) 06/15/17 14:35 Total Bilirubin 0.2 mg/dL (0.3-1.0) L 06/15/17 14:35 AST 10 U/L (13-39) L 06/15/17 14:35 ALT 6 U/L (7-52) L 06/15/17 14:35 Alkaline Phosphatase 64 U/L (34-104) 06/15/17 14:35 Creatine Kinase 64 U/L (30-223) 06/15/17 14:35 Troponin I 0.02 ng/mL (0.01-0.05) 06/15/17 14:35 Total Protein 7.2 gm/dL (6.0-8.3) 06/15/17 14:35 Albumin 3.6 gm/dL (4.2-5.5) L 06/15/17 14:35 Globulin 3.6 gm/dL 06/15/17 14:35 Albumin/Globulin Ratio 1.0 (1.0-1.8) 06/15/17 14:35 Triglycerides 225 mg/dL (<150) H 06/15/17 14:35 Cholesterol 191 mg/dL (<200) 06/15/17 14:35 LDL Cholesterol Direct 117 mg/dL (75-193) 06/15/17 14:35 HDL Cholesterol 44 mg/dL (23-92) 06/15/17 14:35 TSH 1.50 uIU/ml (0.34-5.60) 06/15/17 14:35 Urine Source CLEAN C 06/15/17 14:35 Urine Color YELLOW 06/15/17 14:35 Urine Clarity CLOUDY (CLEAR) 06/15/17 14:35 Urine pH 6.5 (4.6 - 8.0) 06/15/17 14:35 Ur Specific [place] 1.020 (1.005-1.030) 06/15/17 14:35 Urine Protein 100 mg/dL (NEGATIVE) H 06/15/17 14:35 Urine Glucose (UA) NEGATIVE mg/dL (NEGATIVE) 06/15/17 14:35 Urine Ketones NEGATIVE mg/dL (NEGATIVE) 06/15/17 14:35 Urine Blood LARGE (NEGATIVE) H 06/15/17 14:35 Urine Nitrate POSITIVE (NEGATIVE) H 06/15/17 14:35 Urine Bilirubin NEGATIVE (NEGATIVE) 06/15/17 14:35 Urine Urobilinogen 0.2 E.U./dL (0.2 - 1.0) 06/15/17 14:35 Ur Leukocyte Esterase LARGE (NEGATIVE) H 06/15/17 14:35 Urine RBC 25-50 /hpf (0-5) H 06/15/17 14:35 Urine WBC >100 /hpf (0-5) H 06/15/17 14:35 Ur Epithelial Cells NONE SEEN /lpf (FEW) 06/15/17 14:35 Urine Bacteria FEW /hpf (NONE SEEN) 06/15/17 14:35 RPR NONREACTIVE (NONREACTIVE) 06/15/17 14:35 - Physical Exam Vitals and I&O: Vital Signs Temp 98.4 F 06/20/17 06:17 Pulse 98 06/20/17 08:25 Resp 18 06/20/17 06:17 BP 148/72 06/20/17 08:25 Pulse Ox 98 06/20/17 06:17 Intake & Output 06/19/17 06/20/17 06/20/17 18:59 06:59 18:59 Intake Total 1800 120 Output Total 1400 350 Balance 400 -230 Weight (lbs) 163 lb Intake: Oral 1800 120 Output: Urine 1400 350 Other: # Voids 0 # Bowel Movements 0 Active Medications: Current Medications Acetaminophen (Tylenol) 650 mg PO Q4HR PRN PRN Reason: Temp above 100 Stop: 08/14/17 17:58 Acetaminophen (Tylenol) 650 mg PO Q6HR PRN PRN Reason: Pain (Mild) Stop: 08/15/17 13:50 Al Hydrox/Mg Hydrox/Simethicone (Maalox) 30 ml PO Q4HR PRN PRN Reason: GI DISTRESS Stop: 08/14/17 17:58 Ascorbic Acid (Vitamin C) 500 mg PO DAILY [facility] Stop: 08/15/17 08:59 Last Admin: 06/20/17 08:27 Dose: 500 mg Enoxaparin Sodium (Lovenox) 70 mg SUBQ Q24H [facility] Stop: 08/15/17 17:59 Last Admin: 06/19/17 17:06 Dose: 70 mg Escitalopram Oxalate (Lexapro) 10 mg PO DAILY [facility] PRN Reason: Protocol Stop: 08/15/17 08:59 Last Admin: 06/20/17 08:26 Dose: 10 mg Hydralazine HCl (Apresoline) 25 mg PO TID [facility] Stop: 08/14/17 20:59 Last Admin: 06/20/17 08:23 Dose: 25 mg Hydroxyzine HCl (Atarax) 25 mg PO Q6HR PRN; Protocol PRN Reason: PRURITUS Stop: 08/14/17 18:01 Last Admin: 06/17/17 21:45 Dose: 25 mg Hydroxyzine HCl (Atarax) 25 mg PO TID [facility] PRN Reason: Protocol Stop: 08/14/17 20:59 Last Admin: 06/20/17 08:24 Dose: 25 mg Lactobacillus Rhamnosus (Culturelle 15b) 1 each PO DAILY [facility] Stop: 08/19/17 08:59 Last Admin: 06/20/17 08:25 Dose: 1 each Levofloxacin (Levaquin) 250 mg PO Q2D@0900 [facility] Stop: 08/19/17 08:59 Last Admin: 06/20/17 08:24 Dose: 250 mg Loratadine (Claritin) 10 mg PO DAILY [facility] Stop: 08/15/17 08:59 Last Admin: 06/20/17 08:25 Dose: 10 mg Lorazepam (Ativan) 0.5 mg PO Q4HR PRN; Protocol PRN Reason: Anxiety Stop: 07/15/17 17:58 Lorazepam (Ativan) 0.5 mg PO Q12HR PRN; Protocol PRN Reason: Agitation Stop: 08/15/17 13:50 Magnesium Hydroxide (Milk Of Magnesia) 30 ml PO HS PRN PRN Reason: Constipation Metoprolol Tartrate (Lopressor) 12.5 mg PO DAILY [facility] Stop: 08/15/17 08:59 Last Admin: 06/20/17 08:25 Dose: 12.5 mg Miscellaneous (Probiotic Screen) 1 ea MC PRN PRN PRN Reason: PROTOCOL Stop: 08/18/17 09:29 Neomycin/Polymyxin/Bacitracin (Triple Antibiotic Pkt) 1 pkt TP DAILY [facility] Stop: 08/17/17 08:59 Last Admin: 06/20/17 08:25 Dose: 1 pkt Nitrofurantoin Macrocrystals (Macrobid) 100 mg PO BID [facility] PRN Reason: Protocol Stop: 06/26/17 08:59 Last Admin: 06/20/17 08:25 Dose: 100 mg Pantoprazole Sodium (Protonix) 40 mg PO MWF [facility] Stop: 08/15/17 08:59 Last Admin: 06/19/17 08:45 Dose: 40 mg Quetiapine Fumarate (Seroquel) 25 mg PO BID [facility] PRN Reason: Protocol Stop: 08/15/17 08:59 Last Admin: 06/20/17 08:27 Dose: 25 mg Tamsulosin HCl (Flomax) 0.4 mg PO HS [facility] Stop: 08/14/17 20:59 Last Admin: 06/19/17 21:14 Dose: 0.4 mg Zolpidem Tartrate (Ambien) 5 mg PO HS PRN PRN Reason: Insomnia Stop: 08/14/17 17:58 General: alert HEENT: NC/AT, PERRLA Neck: Supple Lungs: CTAB Cardiovascular: RRR, Normal S1, Normal S2, without murmur Abdomen: soft, non-tender, non-distended, positive bowel sound Neurological: alert Internal Medicine Assmt/Plan - Assessment Assessment: acute uti mrsa urine acute renal insufficiency anemia bph gerd - Plan Plan: continue po abx augmentin encourage fluids continue current plan of care
[2017-06-20] MEDS: Enoxaparin 80 mg/0.8 mL 0.8mL Syr SUBQ SCH (17:20)
--- NOTE | 2017-06-20 19:08 | Progress Notes ---
DATE: 06/20/2017 SUBJECTIVE: The patient transferred to the hospital from [place], increased agitation, psychosis, talking to self, striking and hitting others, out of control behaviors, unruly behaviors. The patient really has no idea why he is in the hospital, minimizing, praying to God that he will be released, stating wants to go and be with his , but given the severity of the events that brought him here I do have continued concerns. The patient denies any depression, no anger. It seems he has been calmer still. He is pretty reclusive, eating well, sleeping well. ASSESSMENT: The patient remains symptomatic, impulsive, unpredictable, but improvement noted, seems to be improved versus his admission. Medications were reviewed including dosages and frequencies, currently on low-dose Seroquel. We will monitor and follow up. Coordinate care with social work regarding safe discharge plan and good psychiatric followup. JOB# [id number]
--- NOTE | 2017-06-21 07:21 | Progress Notes ---
DATE: 06/18/2017 SUBJECTIVE: Chart reviewed and the patient interviewed. Also discussed the patient's condition with the staff and reviewed the records and labs. The patient is still confused. The patient also is still withdrawn and interacting minimally with others. The patient also is still in a depressed mood, but he is compliant with taking his medications with no side effects of medications. The patient is in isolation secondary to methicillin-resistant Staphylococcus aureus positive in urine. ASSESSMENT: The patient is still depressed. TREATMENT PLAN: Continue monitoring his behavior and condition closely. Also, continue adjusting psychotropic medications and also continue treatment for methicillin-resistant Staphylococcus aureus positive. [facility]# [id number]
[2017-06-21] MEDS: Triple Antibiotic 0.94 gm Pkt TP SCH (09:18)
[2017-06-21] MEDS: Lactobacillus Rhamnosus GG 15 Billion CFU CAP.SPRINK PO SCH (09:20)
[2017-06-21] MEDS: Pantoprazole 40 mg EC Tab PO SCH (09:21)
[2017-06-21] MEDS: Multivitamin w/ Minerals Tab PO SCH (09:21)
--- NOTE | 2017-06-21 13:22 | Internal Medicine Prog Note ---
Internal Medicine Subjective - Subjective Service Date: 06/21/17 Patient seen and examined:: with staff Patient is:: awake Per staff patient has:: tolerating meds Internal Medicine Objective - Results Result Diagrams: 06/15/17 14:35 06/15/17 14:35 Recent Labs: Laboratory Last Values WBC 7.4 Th/cmm (4.8-10.8) 06/15/17 14:35 RBC 3.53 Mil/cmm (3.80-5.80) L 06/15/17 14:35 Hgb 10.6 gm/dL (12-16) L 06/15/17 14:35 Hct 31.4 % (41.0-60) L 06/15/17 14:35 MCV 89.1 fl (80-99) 06/15/17 14:35 MCH 30.0 pg (27.0-31.0) 06/15/17 14:35 MCHC Differential 33.7 pg (28.0-36.0) 06/15/17 14:35 RDW 14.0 % (11.5-20.0) 06/15/17 14:35 Plt Count 432 Th/cmm (150-400) H 06/15/17 14:35 MPV 6.7 fl 06/15/17 14:35 Neutrophils % 40.5 % (40.0-80.0) 06/15/17 14:35 Lymphocytes % 37.7 % (20.0-50.0) 06/15/17 14:35 Monocytes % 13.9 % (2.0-10.0) H 06/15/17 14:35 Eosinophils % 7.5 % (0.0-5.0) H 06/15/17 14:35 Basophils % 0.4 % (0.0-2.0) 06/15/17 14:35 Sodium 138 mEq/L (136-145) 06/15/17 14:35 Potassium 3.8 mEq/L (3.5-5.1) 06/15/17 14:35 Chloride 108 mEq/L (98-107) H 06/15/17 14:35 Carbon Dioxide 21.1 mEq/L (21.0-31.0) 06/15/17 14:35 Anion Gap 12.7 (7.0-16.0) 06/15/17 14:35 BUN 52 mg/dL (7-25) H 06/15/17 14:35 Creatinine 3.2 mg/dL (0.7-1.3) H 06/15/17 14:35 Est GFR ( Amer) TNP 06/15/17 14:35 Est GFR (Non-Af Amer) TNP 06/15/17 14:35 BUN/Creatinine Ratio 16.3 06/15/17 14:35 Glucose 96 mg/dL (70-105) 06/15/17 14:35 POC Glucose 134 MG/DL (70 - 105) H 06/19/17 20:23 Calcium 9.2 mg/dL (8.6-10.3) 06/15/17 14:35 Total Bilirubin 0.2 mg/dL (0.3-1.0) L 06/15/17 14:35 AST 10 U/L (13-39) L 06/15/17 14:35 ALT 6 U/L (7-52) L 06/15/17 14:35 Alkaline Phosphatase 64 U/L (34-104) 06/15/17 14:35 Creatine Kinase 64 U/L (30-223) 06/15/17 14:35 Troponin I 0.02 ng/mL (0.01-0.05) 06/15/17 14:35 Total Protein 7.2 gm/dL (6.0-8.3) 06/15/17 14:35 Albumin 3.6 gm/dL (4.2-5.5) L 06/15/17 14:35 Globulin 3.6 gm/dL 06/15/17 14:35 Albumin/Globulin Ratio 1.0 (1.0-1.8) 06/15/17 14:35 Triglycerides 225 mg/dL (<150) H 06/15/17 14:35 Cholesterol 191 mg/dL (<200) 06/15/17 14:35 LDL Cholesterol Direct 117 mg/dL (75-193) 06/15/17 14:35 HDL Cholesterol 44 mg/dL (23-92) 06/15/17 14:35 TSH 1.50 uIU/ml (0.34-5.60) 06/15/17 14:35 Urine Source CLEAN C 06/15/17 14:35 Urine Color YELLOW 06/15/17 14:35 Urine Clarity CLOUDY (CLEAR) 06/15/17 14:35 Urine pH 6.5 (4.6 - 8.0) 06/15/17 14:35 Ur Specific [place] 1.020 (1.005-1.030) 06/15/17 14:35 Urine Protein 100 mg/dL (NEGATIVE) H 06/15/17 14:35 Urine Glucose (UA) NEGATIVE mg/dL (NEGATIVE) 06/15/17 14:35 Urine Ketones NEGATIVE mg/dL (NEGATIVE) 06/15/17 14:35 Urine Blood LARGE (NEGATIVE) H 06/15/17 14:35 Urine Nitrate POSITIVE (NEGATIVE) H 06/15/17 14:35 Urine Bilirubin NEGATIVE (NEGATIVE) 06/15/17 14:35 Urine Urobilinogen 0.2 E.U./dL (0.2 - 1.0) 06/15/17 14:35 Ur Leukocyte Esterase LARGE (NEGATIVE) H 06/15/17 14:35 Urine RBC 25-50 /hpf (0-5) H 06/15/17 14:35 Urine WBC >100 /hpf (0-5) H 06/15/17 14:35 Ur Epithelial Cells NONE SEEN /lpf (FEW) 06/15/17 14:35 Urine Bacteria FEW /hpf (NONE SEEN) 06/15/17 14:35 RPR NONREACTIVE (NONREACTIVE) 06/15/17 14:35 - Physical Exam Vitals and I&O: Vital Signs Temp 97.6 F 06/21/17 06:46 Pulse 72 06/21/17 09:20 Resp 20 06/21/17 06:46 BP 127/57 06/21/17 09:20 Pulse Ox 95 06/21/17 06:46 Intake & Output 06/20/17 06/21/17 06/21/17 18:59 06:59 18:59 Intake Total 1800 360 Output Total 1200 Balance 600 360 Weight (lbs) 163 lb Intake: Oral 1800 360 Output: Urine 1200 Other: # Voids 2 # Bowel Movements 0 Active Medications: Current Medications Acetaminophen (Tylenol) 650 mg PO Q4HR PRN PRN Reason: Temp above 100 Stop: 08/14/17 17:58 Acetaminophen (Tylenol) 650 mg PO Q6HR PRN PRN Reason: Pain (Mild) Stop: 08/15/17 13:50 Al Hydrox/Mg Hydrox/Simethicone (Maalox) 30 ml PO Q4HR PRN PRN Reason: GI DISTRESS Stop: 08/14/17 17:58 Ascorbic Acid (Vitamin C) 500 mg PO DAILY [facility] Stop: 08/15/17 08:59 Last Admin: 06/21/17 09:18 Dose: 500 mg Enoxaparin Sodium (Lovenox) 70 mg SUBQ Q24H [facility]IS[facility] Stop: 08/15/17 17:59 Last Admin: 06/20/17 17:20 Dose: 70 mg Escitalopram Oxalate (Lexapro) 10 mg PO DAILY [facility]IS[facility] PRN Reason: Protocol Stop: 08/15/17 08:59 Last Admin: 06/21/17 09:19 Dose: 10 mg Hydralazine HCl (Apresoline) 25 mg PO TID [facility] Stop: 08/14/17 20:59 Last Admin: 06/21/17 09:19 Dose: Not Given Hydroxyzine HCl (Atarax) 25 mg PO Q6HR PRN; Protocol PRN Reason: PRURITUS Stop: 08/14/17 18:01 Last Admin: 06/17/17 21:45 Dose: 25 mg Hydroxyzine HCl (Atarax) 25 mg PO TID LISETH PRN Reason: Protocol Stop: 08/14/17 20:59 Last Admin: 06/21/17 09:20 Dose: 25 mg Lactobacillus Rhamnosus (Culturelle 15b) 1 each PO DAILY [facility] Stop: 08/19/17 08:59 Last Admin: 06/21/17 09:20 Dose: 1 each Levofloxacin (Levaquin) 250 mg PO Q2D@0900 [facility] Stop: 08/19/17 08:59 Last Admin: 06/20/17 08:24 Dose: 250 mg Loratadine (Claritin) 10 mg PO DAILY [facility] Stop: 08/15/17 08:59 Last Admin: 06/21/17 09:20 Dose: 10 mg Lorazepam (Ativan) 0.5 mg PO Q4HR PRN; Protocol PRN Reason: Anxiety Stop: 07/15/17 17:58 Lorazepam (Ativan) 0.5 mg PO Q12HR PRN; Protocol PRN Reason: Agitation Stop: 08/15/17 13:50 Magnesium Hydroxide (Milk Of Magnesia) 30 ml PO HS PRN PRN Reason: Constipation Metoprolol Tartrate (Lopressor) 12.5 mg PO DAILY [facility] Stop: 08/15/17 08:59 Last Admin: 06/21/17 09:20 Dose: Not Given Miscellaneous (Probiotic Screen) 1 ea MC PRN PRN PRN Reason: PROTOCOL Stop: 08/18/17 09:29 Neomycin/Polymyxin/Bacitracin (Triple Antibiotic Pkt) 1 pkt TP DAILY [facility] Stop: 08/17/17 08:59 Last Admin: 06/21/17 09:18 Dose: 1 pkt Nitrofurantoin Macrocrystals (Macrobid) 100 mg PO BID [facility] PRN Reason: Protocol Stop: 06/26/17 08:59 Last Admin: 06/21/17 09:21 Dose: 100 mg Pantoprazole Sodium (Protonix) 40 mg PO MWF [facility] Stop: 08/15/17 08:59 Last Admin: 06/21/17 09:21 Dose: 40 mg Quetiapine Fumarate (Seroquel) 25 mg PO BID [facility]IS[facility] PRN Reason: Protocol Stop: 08/15/17 08:59 Last Admin: 06/21/17 09:21 Dose: 25 mg Tamsulosin HCl (Flomax) 0.4 mg PO HS [facility] Stop: 08/14/17 20:59 Last Admin: 06/20/17 21:23 Dose: 0.4 mg Zolpidem Tartrate (Ambien) 5 mg PO HS PRN PRN Reason: Insomnia Stop: 08/14/17 17:58 General: alert HEENT: NC/AT, PERRLA Neck: Supple Lungs: CTAB Cardiovascular: RRR, Normal S1, Normal S2, without murmur Abdomen: soft, non-tender, non-distended, positive bowel sound Neurological: alert Internal Medicine Assmt/Plan - Assessment Assessment: acute uti mrsa urine acute renal insufficiency anemia bph gerd - Plan Plan: continue po abx augmentin encourage fluids continue current plan of care
--- NOTE | 2017-06-21 20:18 | Discharge Summary ---
DATE OF DISCHARGE: 06/21/2017 REASON FOR ADMISSION: Agitation. HISTORY OF PRESENT ILLNESS: An 81-year-old male transferred from the [facility] with increased agitation, talking to self, striking out at others, out of control behaviors, unruly behaviors, and history of depression. PAST PSYCHIATRIC HISTORY: Depression, unruly behaviors. PAST MEDICAL HISTORY: Noted. SOCIAL HISTORY: Living in the [facility]. ALLERGIES: No known drug allergies. MENTAL STATUS EXAMINATION: Please see full psych eval for details. PROVISIONAL DIAGNOSES: Major depression, severe, recurrent, unspecified and psychosis, unspecified. Under medical, please see full H and P. HOSPITAL COURSE: After initial assessment, the patient restarted back on medications including Seroquel, metoprolol, Ativan p.r.n., Lexapro, and enoxaparin. Over the course of the hospitalization, he improved, mood improved, affect improved. Calm, friendly, and cooperative. Staff noting improvement. No unruly behaviors, no agitation. Following unit rules and directions. CONDITION UPON DISCHARGE: Improved. Good attention ADLs, good eye contact. Speech was within normal limits. Mood: "fine." Affect broad. Thought processes were linear. No SI, no HI. No psychotic symptoms. Insight and judgment improved. The patient motivated and hopeful. DISCHARGE DIAGNOSES: Major depression, unspecified; psychosis, unspecified; and anxiety, unspecified. Under medical: Please see full H and P. PROGNOSIS: The patient follows up with outpatient mental health services and remains treatment compliant. Prognosis will improve, otherwise guarded. [facility]# [id number]
== END 2017-06-21 16:30 | disposition home or self-care (01) | DRG 885 ==
LOC: ER 14:01 → GERO 15:50
PROVIDERS: ADMIT Psychiatry & Neurology Psychiatry; ATTEND Psychiatry & Neurology Psychiatry
DX: F33.3 Major depressive disorder, recurrent, severe with psychotic symptoms (principal); D64.9 Anemia, unspecified; B95.62 Methicillin resistant Staphylococcus aureus infection as the cause of diseases classified elsewhere; E11.9 Type 2 diabetes mellitus without complications; K21.9 Gastro-esophageal reflux disease without esophagitis; N28.9 Disorder of kidney and ureter, unspecified; N39.0 Urinary tract infection, site not specified; N40.0 Benign prostatic hyperplasia without lower urinary tract symptoms; R07.89 Other chest pain; Z66 Do not resuscitate; Z86.73 Personal history of transient ischemic attack (TIA), and cerebral infarction without residual deficits; Z86.718 Personal history of other venous thrombosis and embolism
CPT/HCPCS: 36415-UA; 80053-TC; 80061-TC; 81001-TC; 82550-TC; 82948-90; 84443-TC; 84484-TC; 85025-TC; 86592-TC; 87086-90; 93005; G0410; J1630; J1650; J2060; Z7610